=== PATIENT | female | born 1955 | race Caucasian/White ===

== ENCOUNTER 2016-06-15 09:16 | Emergency (ER) | payer MEDICARE, OTHER ==
[~2016-06-15] VITALS: Ht 170.2 cm; Wt 55.0 kg
[~2016-06-15 09:16] MED LIST: CLON.5 PO; FISH300C2 PO; GABA300 PO; LEVE500 PO; LISI5 PO; PROZ40CA PO; STOO100C PO
[2016-06-15 09:18] VITALS: BP 119/68; PULSE 73; RESP 17; TEMP 97.9; O2SAT 99
[2016-06-15] MEDS ORDERED: OMEGCAP29 PO (09:33)
[2016-06-15] MEDS ORDERED: FLUO40CA PO (09:33)
[2016-06-15] MEDS ORDERED: LISI-519 PO (09:33)
[2016-06-15] MEDS ORDERED: CARB200T PO (09:34)
--- NOTE | 2016-06-15 09:46 | PD ---
HPI Chief Complaint: Injury Time Seen by Provider: 09:46 Travel History International Travel<30 days: No Contact w/Intl Traveler<30days: No Traveled to known affect area: No History of Present Illness HPI 60-year-old female presents to the emergency Department with complaint of left hand and left wrist pain after tripping over a curb yesterday and falling and trying to stop her fall with her left arm. She denies hitting her head or loss of consciousness. Denies nausea, vomiting. Denies anticoagulants. Denies paresthesias, loss of sensation to affected extremity. Reports decreased range of motion at the wrist and the fingers secondary to pain and swelling. Took ibuprofen 800 mg this morning with some relief of pain. Has not taken any other medications or tried any other treatments to relieve her symptoms. Denies chest pain, shortness of breath, abdominal pain. Denies fever, chills. History of MS, lupus, seizures, hypertension. Dr. Atkins is primary care provider. Allergies to Dilaudid. No other modifying factors or associated signs and symptoms. PFSH Past Medical History Blood Disorders: No Anxiety: Yes Depression: Yes Cardiovascular Problems: Yes Cerebrovascular Accident: Yes Diabetes: No Diminished Hearing: No Endocrine: No Genitourinary: No Headaches: Yes Hypertension: Yes Immune Disorder: No Musculoskeletal: Yes (MS) Neurologic: Yes (MULTIPLE SCLEROSIS) Reproductive: No Respiratory: No ?: Not : 2 Para: 2 Past Surgical History Abdominal Surgery: No Cardiac Surgery: No Section: Yes Ear Surgery: No Endocrine Surgery: No Eye Surgery: No Genitourinary Surgery: No Gynecologic Surgery: Yes (C-SECT X2, HYSTERECTOMY) Hysterectomy: Yes Oral Surgery: No Thoracic Surgery: No Tonsillectomy: Yes Other Surgery: Yes (breast augmentations x 6) Social History Alcohol Use: No Tobacco Use: Yes (1/2 ppd) Substance Use: No Allergies-Medications (Allergen,Severity, Reaction): Coded Allergies: Dilaudid (Verified Allergy, Unknown, UNKNOWN, 06/15/16) PT STATES THAT WHEN SHE TAKES IT SHE GOES INTO A SPELL Reported Meds & Prescriptions Reported Meds & Active Scripts Active Lortab (Hydrocodone-Acetaminophen) 5-325 Mg Tab 1 Tab PO Q4-6H PRN Ibuprofen 800 Mg Tab 800 Mg PO Q6HR PRN Reported Carbamazepine 200 Mg Tab 350 Mg PO BID [facility] ([place] 3 Fatty Haxof-Sekxaj-Dnjqnfkvmv) 250-2.5-0.5 Mg Cap 1 Cap PO DAILY Lisinopril 5 Mg Tab 5 Mg PO DAILY Fluoxetine (Fluoxetine HCl) 40 Mg Cap 40 Cap PO DAILY Review of Systems Except as stated in HPI: all other systems reviewed are Neg Physical Exam Narrative GENERAL: Well-nourished, well-developed female patient, in no acute distress SKIN: Warm and dry. HEAD: Atraumatic. Normocephalic. No facial abrasions or lacerations noted. EYES: Pupils equal and round at 3 mm with brisk reaction. No scleral icterus. No injection or drainage. No raccoon eyes. ENT: Mucosa pink and moist. No erythema or exudates. No uvular edema. No uvular , palatal, or tonsillar deviation. Airway patent. Nares without nasal blood, purulent drainage or septal hematoma. No rhinorrhea. EARS: Bilateral pinnae and external canals appear within normal limits. Bilateral tympanic membranes without erythema, dullness, hemotympanum or perforation. No otorrhea. No bustamante signs. NECK: Trachea midline. Moving freely. Active rotation of the neck greater than 45 left and right. No obvious deformities. CHEST: No retractions or use of accessory muscles. CARDIOVASCULAR: Regular rate and rhythm. No murmur appreciated. RESPIRATORY: No accessory muscle use. Clear to auscultation. Breath sounds equal bilaterally. GASTROINTESTINAL: Abdomen soft, non-tender, nondistended. Hepatic and splenic margins not palpable. Bowel sounds are active 4 quadrants. MUSCULOSKELETAL: Left wrist is edematous with tenderness on palpation; without erythema, ecchymosis; unable to assess range of motion secondary to patient guarding and pain; no obvious deformity. Left hand with mild edema noted to the left second digit; with limited range of motion secondary to patient guarding and pain; no obvious deformity; sensory intact. Left approximately supplemented with 2+ radial pulse and sensory intact; fingers with sensation intact and less than 3 second cap refill. No obvious deformities. No clubbing. No cyanosis. BACK: No obvious deformities. Patient sitting up in bed at 90. NEUROLOGICAL: Awake and alert. Oriented 3. No obvious cranial nerve deficits. Motor grossly within normal limits. Normal speech. Moves all extremities. 5/5 strength to all extremities. Sensory intact. PSYCHIATRIC: Appropriate mood and affect; insight and judgment normal. Data Data Last Documented VS Vital Signs Date Time Temp Pulse Resp B/P Pulse Ox O2 Delivery O2 Flow Rate FiO2 06/15/16 09:18 97.9 73 17 119/68 99 Orders Hand, Complete ([id number]) (06/15/16 09:46) Wrist, Complete ([id number]) (06/15/16 09:46) Ice/Cold Pack (06/15/16 09:46) Acetamin-Hydrocod 325-5 Mg ([place] 5-325 (06/15/16 10:00) Splint Or Brace Apply/Monitor (06/15/16 10:50) Sling Cradle Arm (06/15/16 ) Fiberglass Sugartong Sp Ad Arm (06/15/16 ) Sling Cradle Arm (06/15/16 ) Sling Cradle Arm (06/15/16 ) MDM Medical Decision Making Medical Screen Exam Complete: Yes Emergency Medical Condition: Yes Medical Record Reviewed: Yes Differential Diagnosis Fall, wrist fracture, wrist sprain, hand fracture, finger fracture Narrative Course 60-year-old female with left wrist and hand injury after a mechanical fall yesterday. Denies hitting her head or loss of consciousness. Denies anticoagulants. Denies nausea, vomiting. On physical exam the patient is without raccoon eyes, bustamante signs, rhinorrhea, or hemotympanum. I do not suspect open or depressed skull fracture, and the patient has no signs of basilar skull fracture. [place] CT Head Injury Rule suggests a head CT is not necessary for this patient and clears the patient for head injury without imaging. Lortab ordered. Left wrist and hand x-ray ordered. Left wrist and hand x-ray concludes Minimal fracture along the posterior distal radius. Sugar tong splint ordered. Arm sling ordered for support. Lortab and ibuprofen prescribed for home. Instructed patient to follow up with orthopedic tomorrow. Patient verbalized understanding and agreement with treatment plan. Patient is medically cleared and stable for discharge. Discussed reasons to return to the emergency department. Instructed patient to follow up with primary care provider. Patient agrees with treatment plan. The patients vital signs are stable and the patient is stable for outpatient follow-up and treatment. Patient discharged home, stable and in no acute distress. Diagnosis Primary Impression: Fall Qualified Code: W19.XXXA - Fall, initial encounter Additional Impression: Left wrist fracture Qualified Code: S62.102A - Left wrist fracture, closed, initial encounter Referrals: Orthopaedic Surgeon Primary Care Physician Patient Instructions: Fall Prevention (ED), General Instructions Departure Forms: Tests/Procedures, Work Release Special Instructions: UNABLE TO RETURN TO WORK UNTIL CLEARD BY ORTHOPEDIC Additional Instructions: Tylenol or ibuprofen as directed and as needed to reduce pain Rest, ice, compress, and elevate extremity to decrease pain and inflammation Bernardo wrap for support Splint for support Avoid aggravating activity; increase activity as tolerated Follow-up with primary care provider Follow-up with orthopedics 06/16/2016 Return to the emergency department immediately with worsening symptoms Med/Other Pt SpecificInfo: Prescription(s) given Scripts Hydrocodone-Acetaminophen (Lortab)5-325 Mg Tab1 Tab PO Q4-6H PRN (PAIN) #20 TAB Ref 0 Prov:Regina Mann DO 06/15/16 Ibuprofen 800 Mg Qob477 Mg PO Q6HR PRN (PAIN LESS THAN 5 ON SCALE) #30 TAB Ref 0 Prov:Krystin Parker 06/15/16 Disposition: 01 DISCHARGE HOME Condition: Stable Krystin Parker Jun 15, 2016 09:46
[2016-06-15] MEDS ORDERED: ACETAMINOPHEN/HYDROcodone 325 MG/5 MG TAB PO ONE (10:00)
--- NOTE | 2016-06-15 10:27 | RADRPT ---
EXAM DATE/TIME: 06/15/2016 10:20 [facility] COMPARISON: No previous studies available for comparison. INDICATIONS : Left wrist pain post fall MEDICAL HISTORY : Multiple sclerosis. SURGICAL HISTORY : None. ENCOUNTER: Initial ACUITY: 1 day PAIN SCORE: 10/10 LOCATION: Left upper extremity FINDINGS: Three view examination of the left wrist demonstrates minimal fracture along the posterior cortex of the distal radius. Node significant displacement or dislocation. The carpal bones are in normal alig nment. The joint spaces are maintained. Bony mineralization is normal. CONCLUSION: 1. Minimal fracture along the posterior distal radius. Deandre Turcios MD on June 15, 2016 at 10:25 Board Certified Radiologist. This report was verified electronically.
--- NOTE | 2016-06-15 10:28 | RADRPT ---
EXAM DATE/TIME: 06/15/2016 10:20 [facility] COMPARISON: No previous studies available for comparison. INDICATIONS : Left hand pain and wrist post fall MEDICAL HISTORY : Multiple sclerosis. SURGICAL HISTORY : None. ENCOUNTER: Initial ACUITY: 1 day PAIN SCORE: 10/10 LOCATION: Left upper extremity FINDINGS: Three view examination of the left hand demonstrates fracture of the distal posterior radius. No othe r fractures. Scattered minimal degenerative changes.. The carpal bones appear intact. The interpha langeal and metacarpophalangeal joints are intact. Bony mineralization is normal. CONCLUSION: Minimal fracture distal radius. Deandre Turcios MD on June 15, 2016 at 10:26 Board Certified Radiologist. This report was verified electronically.
[2016-06-15] MEDS ORDERED: IBUP800T23 PO (10:49)
[2016-06-15] MEDS ORDERED: HYDR-3533 PO (10:52)
== END 2016-06-15 11:49 | disposition home or self-care (01) ==
LOC: NEPB 09:16
DX: S52.502A Unspecified fracture of the lower end of left radius, initial encounter for closed fracture (principal); M79.642 Pain in left hand; I10 Essential (primary) hypertension; F17.200 Nicotine dependence, unspecified, uncomplicated; Z87.39 Personal history of other diseases of the musculoskeletal system and connective tissue; Z86.2 Personal history of diseases of the blood and blood-forming organs and certain disorders involving the immune mechanism; Z86.69 Personal history of other diseases of the nervous system and sense organs; Z86.59 Personal history of other mental and behavioral disorders; Z86.79 Personal history of other diseases of the circulatory system; Z86.73 Personal history of transient ischemic attack (TIA), and cerebral infarction without residual deficits; W01.0XXA Fall on same level from slipping, tripping and stumbling without subsequent striking against object, initial encounter
CPT/HCPCS: 29125; 73110; 73130

== ENCOUNTER 2017-04-07 20:28 | Emergency (ER) | payer OTHER ==
[~2017-04-07] VITALS: Ht 170.2 cm; Wt 58.0 kg
[~2017-04-07 20:28] MED LIST changes: +CARB200T PO; -CLON.5 PO; -FISH300C2 PO; +FLUO40CA PO; -GABA300 PO; +HYDR-3533 PO; +IBUP1TAB7 PO; -LEVE500 PO; +LISI-519 PO; -LISI5 PO; +OMEGCAP29 PO; -PROZ40CA PO; -STOO100C PO
[2017-04-07 20:30] VITALS: BP 122/60; PULSE 67; RESP 20; TEMP 98.3; O2SAT 100
--- NOTE | 2017-04-07 21:17 | RADRPT ---
EXAM DATE/TIME: 04/07/2017 20:54 [facility] COMPARISON: CT BRAIN W/O CONTRAST, February 16, 2015, 23:51. INDICATIONS : Syncope. RADIATION DOSE: 56.35 CTDIvol (mGy) MEDICAL HISTORY : Multiple sclerosis. Hypertension. CVA. SURGICAL HISTORY : None. ENCOUNTER: Initial ACUITY: 1 day PAIN SCALE: 0/10 LOCATION: cranial TECHNIQUE: Multiple contiguous axial images were obtained of the head. Using automated exposure control and adj ustment of the mA and/or kV according to patient size, radiation dose was kept as low as reasonably a chievable to obtain optimal diagnostic quality images. DICOM format image data is available electro nically for review and comparison. FINDINGS: CEREBRUM: The ventricles are normal for age. No evidence of midline shift, mass lesion, hemorrhage or acute in farction. No extra-axial fluid collections are seen. POSTERIOR FOSSA: The cerebellum and brainstem are intact. The 4th ventricle is midline. The cerebellopontine angle i s unremarkable. EXTRACRANIAL: The visualized portion of the orbits is intact. SKULL: The calvaria is intact. No evidence of skull fracture. CONCLUSION: 1. No acute intracranial abnormality. Dexter Engle MD on April 07, 2017 at 21:12 Board Certified Radiologist. This report was verified electronically.
--- NOTE | 2017-04-07 21:33 | RADRPT ---
EXAM DATE/TIME: 04/07/2017 21:09 [facility] COMPARISON: No previous studies available for comparison. INDICATIONS : Mid chest pain. MEDICAL HISTORY : Multiple sclerosis. Hypertension. CVA SURGICAL HISTORY : None. ENCOUNTER: Initial ACUITY: 1 day PAIN SCORE: 8/10 LOCATION: mid chest FINDINGS: PA and lateral views of the chest demonstrate the lungs to be symmetrically aerated without evidence of mass, infiltrate or effusion. The cardiomediastinal contours are unremarkable. Osseous structure s are intact. CONCLUSION: No acute disease. Dexter Engle MD on April 07, 2017 at 21:29 Board Certified Radiologist. This report was verified electronically.
[2017-04-07] MEDS ORDERED: SODIUM CHLOR 0.9% 1000 ML INJ 1,000 ML IV ONE (21:45)
[2017-04-07 21:47] LABS: AUTOMATED NEUTROPHIL # 5.2 TH/MM3 (1.8-7.7); BASOPHIL % 0.6 % (0.0-2.0); EOSINOPHIL % 0.5 % (0.0-4.0); HEMATOCRIT 34.4 % (35.0-46.0); HEMO FLAGS DIFF FINAL; LYMPH % 20.8 % (9.0-44.0); LYMPHOCYTE # 1.6 TH/MM3 (1.0-4.8); MEAN CELL VOLUME 97.5 FL (80.0-100.0); MEAN CORPUSCULAR HEMOGLOBIN 33.1 PG (27.0-34.0); MONO % 8.4 % (0.0-8.0); NEUT % 69.7 % (16.0-70.0); PLATELET COUNT 258 TH/MM3 (150-450); RED BLOOD COUNT 3.53 MIL/MM3 (4.00-5.30); RED CELL DISTRIBUTION WIDTH 12.9 % (11.6-17.2); WHITE BLOOD COUNT 7.5 TH/MM3 (4.0-11.0)
--- NOTE | 2017-04-07 21:52 | PD ---
HPI Chief Complaint: General Weakness Time Seen by Provider: 21:28 Travel History International Travel<30 days: No Contact w/Intl Traveler<30days: No Traveled to known affect area: No History of Present Illness HPI The patient is a 61-year-old female who presents to the emergency department for multiple complaints. The patient states she has a history of multiple sclerosis, is followed by neurologist is not currently on any MS medications. The patient states her last 2 weeks she's been in and out of an MS exacerbation, feels like she is dazed at times. The patient states she was cooking dinner earlier tonight, which she apparently had a syncopal episode. It was not witnessed by family, however, they found her lying on the floor in the kitchen. They do state it is a tiled floor, however, the patient denied having any visible bruises or hematomas on the head or extremities. She denies any headache, however, does state that her thoughts seem to calm ago and at time she feels confused. She also states that she has some left-sided chest pain earlier today which is sharp, stabbing, lasts this 3-5 minutes, and can happen at rest or with activity. She denies any exertional shortness of breath or chest pain. She denies any nausea, vomiting, or diaphoresis. The patient does have a history of hyperlipidemia, however, was taken off of her antihyperlipidemic medication secondary to cramping. She does have a history of tobacco use. The patient states she had a cardiac catheterization several years ago but did not have a stent placed at that time, was placed on medical therapy. The patient's symptoms are mild to moderate, there are no current alleviating or exacerbating factors. PFSH Past Medical History Blood Disorders: No Anxiety: Yes Depression: Yes Cardiovascular Problems: Yes (HTN) Cerebrovascular Accident: Yes Diabetes: No Diminished Hearing: No Endocrine: No Genitourinary: No Headaches: Yes Hypertension: Yes Immune Disorder: No Musculoskeletal: Yes (MS) Neurologic: Yes (MULTIPLE SCLEROSIS) Reproductive: No Respiratory: No Tetanus Vaccination: Unknown Influenza Vaccination: No ?: Not : 2 Para: 2 Past Surgical History Abdominal Surgery: No Cardiac Surgery: No Section: Yes Ear Surgery: No Endocrine Surgery: No Eye Surgery: No Genitourinary Surgery: No Gynecologic Surgery: Yes (C-SECT X2, HYSTERECTOMY) Hysterectomy: Yes Oral Surgery: No Thoracic Surgery: No Tonsillectomy: Yes Other Surgery: Yes (BREAST AUGMENTATION) Social History Alcohol Use: No Tobacco Use: Yes (1/2 ppd) Substance Use: No Allergies-Medications (Allergen,Severity, Reaction): Coded Allergies: hydromorphone (Unverified Allergy, Unknown, UNKNOWN, 12/24/16) PT STATES THAT WHEN SHE TAKES IT SHE GOES INTO A SPELL Reported Meds & Prescriptions Reported Meds & Active Scripts Active Lortab (Hydrocodone-Acetaminophen) 5-325 Mg Tab 1 Tab PO Q4-6H PRN Ibuprofen 800 Mg Tab 800 Mg PO Q6HR PRN Reported Carbamazepine 200 Mg Tab 350 Mg PO BID [facility] ([place] 3 Fatty Xhdmc-Omwxbd-Oplbagysuy) 250-2.5-0.5 Mg Cap 1 Cap PO DAILY Lisinopril 5 Mg Tab 5 Mg PO DAILY Fluoxetine (Fluoxetine HCl) 40 Mg Cap 40 Cap PO DAILY Review of Systems Except as stated in HPI: all other systems reviewed are Neg General / Constitutional: No: Fever Eyes: Positive: Blurred Vision, Visual changes HENT: Positive: Lightheadedness, No: Headaches Cardiovascular: Positive: Chest Pain or Discomfort, No: Palpitations, Irregular Rhythm, Tachycardia, Diaphoresis, Dyspnea on exertion Respiratory: No: Shortness of Breath Gastrointestinal: No: Nausea, Vomiting, Abdominal Pain Neurologic: Positive: Dizziness, Change in Mentation, No: Headache, Paresthesia , Sensory Disturbance Physical Exam Narrative GENERAL: Awake, alert, 61-year-old female who appears her stated age and is in no acute respiratory distress. SKIN: Focused skin assessment warm/dry. HEAD: Atraumatic. Normocephalic. EYES: Pupils equal and round. 3 mm bilateral and reactive. EOMs are intact. ENT: No nasal bleeding or discharge. Mucous membranes pink and moist. NECK: Trachea midline. No JVD. CARDIOVASCULAR: Regular, bradycardic with a heart rate in the 50s. RESPIRATORY: No accessory muscle use. Clear to auscultation. Breath sounds equal bilaterally. GASTROINTESTINAL: Abdomen soft, non-tender, nondistended. No rebound tenderness. MUSCULOSKELETAL: No obvious deformities. No clubbing. No cyanosis. No edema. NEUROLOGICAL: Awake and alert. No obvious cranial nerve deficits. Motor grossly within normal limits. Normal speech. Nonfocal. Oriented 4. Follows commands without difficulty. PSYCHIATRIC: Appropriate mood and affect; insight and judgment normal. Data Data Last Documented VS Vital Signs Date Time Temp Pulse Resp B/P (MAP) Pulse Ox O2 Delivery O2 Flow Rate FiO2 04/07/17 20:30 98.3 67 20 122/60 (80) 100 Room Air Orders Orders Electrocardiogram (04/07/17 20:43) Basic Metabolic Panel (Bmp) (04/07/17 20:43) Ckmb (Isoenzyme) Profile (04/07/17 20:43) Complete Blood Count With Diff (04/07/17 20:43) Magnesium (Mg) (04/07/17 20:43) Prothrombin Time / Inr (Pt) (04/07/17 20:43) Act Partial Throm Time (Ptt) (04/07/17 20:43) Troponin I (04/07/17 20:43) Chest, Pa & Lat (04/07/17 20:43) Ct Brain W/O Iv Contrast(Rout) (04/07/17 ) Sodium Chlor 0.9% 1000 Ml Inj (Ns 1000 M (04/07/17 21:45) Urinalysis - C+S If Indicated (04/07/17 21:40) Labs Laboratory Tests Test 04/07/17 21:16 04/07/17 22:20 White Blood Count 7.5 TH/MM3 Red Blood Count 3.53 MIL/MM3 Hemoglobin 11.7 GM/DL Hematocrit 34.4 % Mean Corpuscular Volume 97.5 FL Mean Corpuscular Hemoglobin 33.1 PG Mean Corpuscular Hemoglobin Concent 34.0 % Red Cell Distribution Width 12.9 % Platelet Count 258 TH/MM3 Mean Platelet Volume 8.4 FL Neutrophils (%) (Auto) 69.7 % Lymphocytes (%) (Auto) 20.8 % Monocytes (%) (Auto) 8.4 % Eosinophils (%) (Auto) 0.5 % Basophils (%) (Auto) 0.6 % Neutrophils # (Auto) 5.2 TH/MM3 Lymphocytes # (Auto) 1.6 TH/MM3 Monocytes # (Auto) 0.6 TH/MM3 Eosinophils # (Auto) 0.0 TH/MM3 Basophils # (Auto) 0.0 TH/MM3 CBC Comment DIFF FINAL Differential Comment Prothrombin Time 11.4 SEC Prothromb Time International Ratio 1.0 RATIO Activated Partial Thromboplast Time 23.3 SEC Blood Urea Nitrogen 17 MG/DL Creatinine 0.81 MG/DL Random Glucose 91 MG/DL Calcium Level 9.0 MG/DL Magnesium Level 2.0 MG/DL Sodium Level 142 MEQ/L Potassium Level 3.6 MEQ/L Chloride Level 107 MEQ/L Carbon Dioxide Level 29.8 MEQ/L Anion Gap 5 MEQ/L Estimat Glomerular Filtration Rate 72 ML/MIN Total Creatine Kinase 80 U/L Troponin I LESS THAN 0.02 NG/ML Urine Color YELLOW Urine Turbidity CLEAR Urine pH 6.0 Urine Specific Brick 1.037 Urine Protein 30 mg/dL Urine Glucose (UA) NEG mg/dL Urine Ketones NEG mg/dL Urine Occult Blood SMALL Urine Nitrite NEG Urine Bilirubin NEG Urine Urobilinogen 2.0 MG/DL Urine Leukocyte Esterase TRACE Urine RBC 6 /hpf Urine WBC 3 /hpf Urine Hyaline Casts 1 /lpf Urine Mucus MANY /lpf Microscopic Urinalysis Comment CULT NOT INDICATED MDM Medical Decision Making Medical Screen Exam Complete: Yes Emergency Medical Condition: Yes Medical Record Reviewed: Yes Interpretation(s) EKG reveals sinus bradycardia with a heart rate of 49. No ischemic changes noted. Last Impressions Chest X-Ray 04/07/172042 Signed Impressions: Service Date/Time: Friday, April 07, 2017 21:09 - CONCLUSION: No acute disease. Dexter Engle MD Head CT 04/07/17 0000 Signed Impressions: Service Date/Time: Friday, April 07, 2017 20:54 - CONCLUSION: 1. No acute intracranial abnormality. Dexter Engle MD Laboratory Tests Test 04/07/17 21:16 04/07/17 22:20 White Blood Count 7.5 TH/MM3 Red Blood Count 3.53 MIL/MM3 Hemoglobin 11.7 GM/DL Hematocrit 34.4 % Mean Corpuscular Volume 97.5 FL Mean Corpuscular Hemoglobin 33.1 PG Mean Corpuscular Hemoglobin Concent 34.0 % Red Cell Distribution Width 12.9 % Platelet Count 258 TH/MM3 Mean Platelet Volume 8.4 FL Neutrophils (%) (Auto) 69.7 % Lymphocytes (%) (Auto) 20.8 % Monocytes (%) (Auto) 8.4 % Eosinophils (%) (Auto) 0.5 % Basophils (%) (Auto) 0.6 % Neutrophils # (Auto) 5.2 TH/MM3 Lymphocytes # (Auto) 1.6 TH/MM3 Monocytes # (Auto) 0.6 TH/MM3 Eosinophils # (Auto) 0.0 TH/MM3 Basophils # (Auto) 0.0 TH/MM3 CBC Comment DIFF FINAL Differential Comment Prothrombin Time 11.4 SEC Prothromb Time International Ratio 1.0 RATIO Activated Partial Thromboplast Time 23.3 SEC Blood Urea Nitrogen 17 MG/DL Creatinine 0.81 MG/DL Random Glucose 91 MG/DL Calcium Level 9.0 MG/DL Magnesium Level 2.0 MG/DL Sodium Level 142 MEQ/L Potassium Level 3.6 MEQ/L Chloride Level 107 MEQ/L Carbon Dioxide Level 29.8 MEQ/L Anion Gap 5 MEQ/L Estimat Glomerular Filtration Rate 72 ML/MIN Total Creatine Kinase 80 U/L Troponin I LESS THAN 0.02 NG/ML Urine Color YELLOW Urine Turbidity CLEAR Urine pH 6.0 Urine Specific Brick 1.037 Urine Protein 30 mg/dL Urine Glucose (UA) NEG mg/dL Urine Ketones NEG mg/dL Urine Occult Blood SMALL Urine Nitrite NEG Urine Bilirubin NEG Urine Urobilinogen 2.0 MG/DL Urine Leukocyte Esterase TRACE Urine RBC 6 /hpf Urine WBC 3 /hpf Urine Hyaline Casts 1 /lpf Urine Mucus MANY /lpf Microscopic Urinalysis Comment CULT NOT INDICATED Differential Diagnosis Differential diagnosis includes MS exacerbation, syncope, arrhythmia, pleurisy, costochondritis, pericarditis, myocarditis, ACS, electrolyte abnormality. Narrative Course IV was established, labs are drawn and sent, and the patient was placed on cardiac telemetry monitoring and continuous pulse oximetry monitoring. The patient had a CT of the brain and chest x-ray performed while in triage, CT the brain and chest x-ray are unremarkable. CT the brain was negative. Chest x- rays unremarkable. UA is negative. Sodium is normal. The patient may be having an MS flare, no evidence of arrhythmia. The patient is advised to follow -up with her neurologist, may benefit from outpatient MRI with MS flare screening. The patient's cardiac enzymes are unremarkable. EKG is unremarkable , reveals bradycardia but no ischemic changes noted. The patient is advised to follow-up with her primary physician on an outpatient basis. Take a baby aspirin daily. Diagnosis Primary Impression: Near syncope Additional Impression: Atypical chest pain Patient Instructions: General Instructions Additional Instructions: Take a baby aspirin daily. Follow-up with your primary physician. Please provide the patient a copy of her CT results and lab results at discharge. Return if symptoms worsen or progress. Med/Other Pt SpecificInfo: No Change to Meds Disposition: 01 DISCHARGE HOME Condition: Stable Kalia Carvalho MD Apr 07, 2017 21:52
[2017-04-07 21:58] LABS: APTT (PATIENT) 23.3 SEC (24.3-30.1); PROTHROMBIN TIME - PATIENT 11.4 SEC (9.8-11.6)
[2017-04-07 22:14] LABS: ANION GAP 5 MEQ/L (5-15); BICARBONATE 29.8 MEQ/L (21.0-32.0); BLOOD UREA NITROGEN 17 MG/DL (7-18); CHLORIDE 107 MEQ/L (98-107); GLOMERULAR FILTRATION RATE 72 ML/MIN (>89); POTASSIUM 3.6 MEQ/L (3.5-5.1); SODIUM (NA) 142 MEQ/L (136-145)
[2017-04-07 22:24] LABS: CREATINE KINASE 80 U/L (26-192)
[2017-04-07 22:41] LABS: BLOOD, URINE SMALL (NEG); COMMENT (UR) CULT NOT INDICATED; CULTURE IF INDICATED CULT NOT INDICATED; GLUCOSE,URINE NEG (NEG); HYALINE CAST, URINE 1 /lpf (RARE); KETONE, URINE NEG (NEG); MUCUS URINE MANY /lpf (OCC); NITRITE,URINE NEG (NEG); URINE COLOR YELLOW (YELLW/STRAW)
--- NOTE | 2017-04-08 05:00 | EKG ---
Date Performed: 04/07/2017 Time Performed: 20:55:58 PTAGE: 61 years EKG: Baseline artifact present SINUS BRADYCARDIA BORDERLINE ECG Compared to prior electrocardiog marcos, Nonspecific T wave changes are less marked NO PREVIOUS TRACING DOCTOR: Eh Mcclure Interpretating Date/Time 04/08/2017 04:58:14
== END 2017-04-08 01:23 | disposition home or self-care (01) ==
LOC: NEPE 20:28
DX: R55 Syncope and collapse (principal); R07.89 Other chest pain; R00.1 Bradycardia, unspecified; G35 Multiple sclerosis; I10 Essential (primary) hypertension; F17.210 Nicotine dependence, cigarettes, uncomplicated; Z86.73 Personal history of transient ischemic attack (TIA), and cerebral infarction without residual deficits
CPT/HCPCS: 70450; 71020; 80048; 81001; 82550; 83735; 84484; 85025; 85610; 85730; 93005; 99285; J7030